=== PATIENT | male | born 1985 | race Caucasian/White ===

== ENCOUNTER → 2016-12-21 15:57 | Outpatient (CLI) | payer MEDICAID ==
[2016-06-25 06:07] VITALS: BMI 28.1
[~2016-12-21 15:57] MED LIST: HYDROCODON-ACE1 EAC7 PO; IBUPROFEN600 MG PO; ZANAFLEX2 M1 PO
== END | disposition home or self-care (01) ==
LOC: D.CT 15:57
DX: R31.9 Hematuria, unspecified (principal)

== ENCOUNTER 2017-02-11 05:44 | Day surgery (SDC) | payer MEDICAID ==
[~2017-02-11] VITALS: Ht 190.5 cm; Wt 102.1 kg
[2017-02-11] MEDS ORDERED: TOPROL XL25 MG PO (06:19)
[2017-02-11 06:27] VITALS: BP 122/79; Ht 190.5 cm; Wt 102.1 kg
[2017-02-11 07:25] LABS: HEMATOCRIT 45.9 % (42.0-54.0); HEMOGLOBIN 15.2 g/dL (13.5-17.5); MCH 29.3 pg (26.0-34.0); MCHC 33.1 g/dL (31.0-37.0); MCV 88.6 fL (80.0-100.0); MEAN PLATELET VOLUME 9.9 fL (7.4-10.4); RBC 5.18 10x6/uL (4.20-6.10); RDW 13.5 % (11.5-14.5); WBC 8.5 10x3/uL (4.8-10.8)
--- NOTE | 2017-02-11 08:27 | NUR ---
0820 [facility] UROJET PLACED, SARAH.
[2017-02-11] MEDS ORDERED: PROSCAR5 MG PO (09:08)
--- NOTE | 2017-02-11 09:55 | NUR ---
0945 DRESSED, AWAKE & ALERT SITTING UP ON SIDE OF BED. GIVEN DISCHARGE INFORMATION INCLUDING: RX: PROSCAR, MED REC., RTC APPT., COMPUTER GENERATED DISCHARGE INSTRUCTIONS FOR CYSTOSCOPY, [facility] OUT PATIENT DISCAHRGE INSTRUCTIONS. PT VOICED UNDERSTANDING. TO PRIVATE CAR PER WHEELCHAIR BY VOLUNTEER. HOME WITH . Nadia SCHMIDT R.N.
--- NOTE | 2017-02-11 15:20 | OP ---
PATIENT NAME: NEVIN CHATMAN MEDICAL RECORD: [id number] :87 LOCATION:[facility] ADMISSION DATE: SURGEON: ART MORATAYA MD DATE OF OPERATION: 02/11/2017 SURGEON: Art Morataya MD ANESTHESIA: MAC by Dr. Mahoney. PREOPERATIVE DIAGNOSIS: Gross hematuria. POSTOPERATIVE DIAGNOSES: Benign prostatic hypertrophy with enlarged prosthetic veins, obstructive bladder neck. PROCEDURE: Cystoscopy. SPECIMENS: None. COMPLICATIONS: None. ESTIMATED BLOOD LOSS: None. CLINICAL HISTORY: This is a 31-year-old male, who has been complaining of gross hematuria episodes for the past 3 months. This is painless gross hematuria. He does not have anything in the way of voiding symptoms. He comes today to have cystoscopy performed. He was given Ancef 1 gram IV financial foundations associate to the OR. DESCRIPTION OF PROCEDURE: The patient was given IV sedation. He was placed in the dorsal lithotomy position, prepped and draped. The male sounds were used to dilate the meatus to 22-Danish. A 17-Danish cystoscope with 30-degree lens was used for visualization. Uro-Jet lidocaine jelly was inserted into the urethra. He has normal penile urethra. The prostatic urethra shows prominent veins. The bladder neck is somewhat tight and obstructive. Lateral lobes are not obstructive. Going into the bladder, he has a mildly trabeculated bladder. Single ureteral orifices are seen on each side. No bladder tumors were seen. 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 I will start him on finasteride to shrink these. TRANSINT:[id number] Voice Confirmation ID: [id number] DOCUMENT ID: [id number] ART MORATAYA MD at 1520 CC: [id number] DICTATION DATE: 02/11/17 0852 CUSTODIAL AIDE: 02/11/17 1059 [facility] 02/11/17 [id number] [place] [address]
== END 2017-02-11 09:45 | disposition home or self-care (01) ==
LOC: D.OPS 05:44
PROVIDERS: Anesthesiology
DX: R31.0 Gross hematuria (principal); F17.200 Nicotine dependence, unspecified, uncomplicated; I10 Essential (primary) hypertension; K21.9 Gastro-esophageal reflux disease without esophagitis; Z01.812 Encounter for preprocedural laboratory examination

== ENCOUNTER 2017-04-22 14:11 | Emergency (ER) | payer MEDICAID ==
[2017-02-11 06:27] VITALS: BMI 28.1
[~2017-04-22 14:11] MED LIST changes: +PROSCAR5 MG PO; +TOPROL XL25 MG PO
[2017-04-22 15:06] LABS: BASOPHILS 0.2 % (0-2); EOSINOPHILS 1.8 % (0-7); HEMOGLOBIN 15.5 g/dL (13.5-17.5); IMMATURE GRANULOCYTES 0.4 % (0-5); LYMPHOCYTES 22.8 % (15-50); MCH 30.3 pg (26.0-34.0); MCHC 34.4 g/dL (31.0-37.0); MCV 87.9 fL (80.0-100.0); MEAN PLATELET VOLUME 9.6 fL (7.4-10.4); MONOCYTES 7.8 % (2-11); PLATELET COUNT 303 10x3/uL (130-400); RBC 5.12 10x6/uL (4.20-6.10); RDW 12.8 % (11.5-14.5); WBC 10.3 10x3/uL (4.8-10.8)
[2017-04-22 15:31] LABS: ALBUMIN 3.8 g/dL (3.4-5.0); ALKALINE PHOSPHATASE 85 U/L (46-116); ALT (SGPT) 23 U/L (10-68); BILIRUBIN - TOTAL 0.41 mg/dL (0.2-1.3); CALC OSMOLALITY 278 mosm/kg (275-300); CARBON DIOXIDE 24.2 mmol/L (21.0-32.0); CHLORIDE - SERUM 104 mmol/L (98-107); CREATININE - SERUM 1.1 mg/dL (0.6-1.3); GLUCOSE 94 mg/dL (74-106); POTASSIUM - SERUM 4.1 mmol/L (3.5-5.1); PROTEIN - SERUM 7.2 g/dL (6.4-8.2); SODIUM 140 mmol/L (136-145); UREA NITROGEN 13 mg/dL (7-18); eGFR NON AFRICAN AMERICAN 83 mL/min (90-120)
[2017-04-22 15:40] LABS: UDS - AMPHET POSITIVE QUAL (NEGATIVE); UDS - BARB NEGATIVE QUAL (NEGATIVE); UDS - BENZO NEGATIVE QUAL (NEGATIVE); UDS - COCAINE NEGATIVE QUAL (NEGATIVE); UDS - METH NEGATIVE QUAL (NEGATIVE); UDS - OPIATE NEGATIVE QUAL (NEGATIVE); UDS - PCP NEGATIVE QUAL (NEGATIVE); UDS - THC POSITIVE QUAL (NEGATIVE)
[2017-04-22 15:41] LABS: APPEARANCE CLEAR (CLEAR); BILIRUBIN NEGATIVE (NEGATIVE); COLOR DK YELLOW (YELLOW); GLUCOSE NEGATIVE (NEGATIVE); KETONE NEGATIVE (NEGATIVE); LEUKOCYTE ESTERASE NEGATIVE (NEGATIVE); NITRITE NEGATIVE (NEGATIVE); PROTEIN NEGATIVE (NEGATIVE); UROBILINOGEN NORMAL (NORMAL)
== END 2017-04-22 17:37 | disposition home or self-care (01) ==
LOC: D.ER 14:11
PROVIDERS: Emergency Medicine
DX: F33.9 Major depressive disorder, recurrent, unspecified (principal); R45.851 Suicidal ideations; F17.200 Nicotine dependence, unspecified, uncomplicated

== ENCOUNTER 2017-10-16 19:15 | Emergency (ER) | payer MEDICAID ==
[2017-02-11 06:27] VITALS: BMI 28.1
[2017-10-16 20:24] LABS: BASOPHILS 0.2 % (0-2); EOSINOPHILS 3.1 % (0-7); HEMATOCRIT 41.6 % (42.0-54.0); HEMOGLOBIN 14.2 g/dL (13.5-17.5); IMMATURE GRANULOCYTES 0.4 % (0-5); LYMPHOCYTES 31.6 % (15-50); MCH 29.4 pg (26.0-34.0); MCHC 34.1 g/dL (31.0-37.0); MCV 86.1 fL (80.0-100.0); MEAN PLATELET VOLUME 9.1 fL (7.4-10.4); MONOCYTES 11.8 % (2-11); NEUTROPHILS 52.9 % (40-80); PLATELET COUNT 337 10x3/uL (130-400); RBC 4.83 10x6/uL (4.20-6.10); RDW 12.5 % (11.5-14.5); WBC 8.5 10x3/uL (4.8-10.8)
[2017-10-16 20:42] LABS: ALBUMIN 3.8 g/dL (3.4-5.0); ALKALINE PHOSPHATASE 79 U/L (46-116); ALT (SGPT) 20 U/L (10-68); BILIRUBIN - TOTAL 0.43 mg/dL (0.2-1.3); CALC OSMOLALITY 278 mosm/kg (275-300); CALCIUM 9.1 mg/dL (8.5-10.1); CARBON DIOXIDE 29.5 mmol/L (21.0-32.0); CHLORIDE - SERUM 105 mmol/L (98-107); CREATININE - SERUM 1.2 mg/dL (0.6-1.3); GLUCOSE 99 mg/dL (74-106); POTASSIUM - SERUM 3.7 mmol/L (3.5-5.1); PROTEIN - SERUM 7.4 g/dL (6.4-8.2); SODIUM 139 mmol/L (136-145); UREA NITROGEN 14 mg/dL (7-18); eGFR NON AFRICAN AMERICAN 75 mL/min (90-120)
[2017-10-16 21:58] LABS: APPEARANCE CLEAR (CLEAR); BILIRUBIN NEGATIVE (NEGATIVE); COLOR YELLOW (YELLOW); GLUCOSE NEGATIVE (NEGATIVE); KETONE NEGATIVE (NEGATIVE); NITRITE NEGATIVE (NEGATIVE); PROTEIN NEGATIVE (NEGATIVE); SPECIFIC GRAVITY 1.015 (1.005-1.020); UROBILINOGEN NORMAL (NORMAL)
[2017-10-19 08:20] LABS: CHLAMYDIA TRACHOMATIS, NAA Negative (Negative)
== END 2017-10-16 23:10 | disposition home or self-care (01) ==
LOC: D.ER 19:15
PROVIDERS: Family Medicine
DX: N43.3 Hydrocele, unspecified (principal)